=== PATIENT | female | born 2000 | race Caucasian/White ===

== ENCOUNTER 2021-06-07 08:15 | Outpatient (RCR) | payer BC | END 2021-06-09 | disposition home or self-care (01) | LOC: WSST | DX: J38.2 Nodules of vocal cords (principal) ==

== ENCOUNTER 2021-07-05 08:15 | Outpatient (RCR) | payer BC | END 2021-07-10 | disposition home or self-care (01) | LOC: WSST | DX: J38.2 Nodules of vocal cords (principal); J32.8 Other chronic sinusitis ==

== ENCOUNTER 2021-07-19 08:26 | Outpatient (RCR) | payer BC | END 2021-08-07 | disposition home or self-care (01) | LOC: WSST | DX: J38.2 Nodules of vocal cords (principal) ==